=== PATIENT | male | born 1985 | race Caucasian/White ===

== ENCOUNTER 2017-01-24 02:38 | Emergency (ER) | payer MEDICAID ==
[2017-01-24 02:47] VITALS: BP 132/77
--- NOTE | 2017-01-24 03:04 | EDM.PDOC ---
ED HPI GENERAL MEDICAL PROBLEM - General Chief Complaint: Respiratory Problem Stated Complaint: COUGH CONGESTION Time Seen by Provider: 01/24/17 02:41 Source of Information: Reports: Patient, RN Notes Reviewed History Limitations: Reports: No Limitations - History of Present Illness INITIAL COMMENTS - FREE TEXT/NARRATIVE: The patient states that he has had a cough, occasionally productive of greenish sputum, for the past 4 days. He complains of some right side pain for the past 4 days, and a burning sensation to his right nostril with inhalation on off for the past 3 weeks. No recent fever. No prior similar symptoms. The patient states that he has been taking [id number] Sudafed, without relief. He states that he had surgical repair of a deviated septum about 6 weeks ago, in [place]. The patient does not have a PCP. Right Abdomen Pain Score (Numeric/FACES): 4 - Related Data Allergies Allergy/AdvReac Type Severity Reaction Status Date / Time No Known Allergies Allergy Verified 01/24/17 02:43 Home Meds: Home Meds . [No Known Home Meds] 01/24/17 [History] Past Medical History Endocrine/Metabolic History: Reports: Obesity/BMI 30+ - Past Surgical History HEENT Surgical History: Reports: Naso-Sinus Surgery (Repair of deviated septum) Social & Family History - Tobacco Use Smoking Status *Q: Never Smoker Second Hand Smoke Exposure: No - Caffeine Use Caffeine Use: Reports: Energy Drinks - Alcohol Use Alcohol Use History: No - Recreational Drug Use Recreational Drug Use: No - Living Situation & Occupation Living situation: Reports: , with Spouse, with Family (Son) Occupation: Employed ([employer]) ED ROS GENERAL - Review of Systems Review Of Systems: See Below Constitutional: Reports: No Symptoms HEENT: Reports: No Symptoms Respiratory: Reports: No Symptoms Cardiovascular: Reports: No Symptoms Endocrine: Reports: No Symptoms GI/Abdominal: Reports: No Symptoms : Reports: No Symptoms Musculoskeletal: Reports: No Symptoms Skin: Reports: No Symptoms Neurological: Reports: No Symptoms Psychiatric: Reports: No Symptoms Hematologic/Lymphatic: Reports: No Symptoms Immunologic: Reports: No Symptoms ED EXAM, GENERAL - Physical Exam Exam: See Below Exam Limited By: No Limitations General Appearance: Alert, WD/WN, No Apparent Distress Eye Exam: Bilateral Eye: Normal Inspection Ears: Normal External Exam, Normal Canal, Hearing Grossly Normal, Normal TMs Ear Exam: Bilateral Ear: Auricle Normal, Canal Normal, TM normal Nose: Normal Inspection, No Blood, Other (Bilateral nasal mucosal edema) Throat/Mouth: Normal Inspection, Normal Lips, Normal Teeth, Normal Gums, Normal Oropharynx, Normal Voice, No Airway Compromise Head: Atraumatic, Normocephalic Neck: Normal Inspection, Supple, Non-Tender, Full Range of Motion. No: Lymphadenopathy (L), Lymphadenopathy (R) Respiratory/Chest: No Respiratory Distress, Lungs Clear, Normal Breath Sounds, No Accessory Muscle Use Cardiovascular: Normal Peripheral Pulses, Regular Rate, Rhythm, No Gallop, No JVD, No Murmur, No Rub Peripheral Pulses: 4+: Radial (L), Radial (R) GI/Abdominal: Normal Bowel Sounds, Soft, Non-Tender, No Organomegaly, No Distention, No Abnormal Bruit, No Mass, Other (Obese) (Male) Exam: Deferred Rectal (Males) Exam: Deferred Back Exam: Normal Inspection, Full Range of Motion, NT Extremities: Normal Inspection, Normal Range of Motion, No Pedal Edema, Normal Capillary Refill Neurological: Alert, Oriented, Normal Cognition, No Motor/Sensory Deficits Psychiatric: Normal Affect Skin Exam: Warm, Dry, Intact, Normal Color, No Rash Lymphatic: No Adenopathy Course - Vital Signs Last Recorded V/S: Last Vital Signs Temp 36.4 C 01/24/17 02:43 Pulse 67 01/24/17 02:43 Resp 20 01/24/17 02:43 BP 132/77 01/24/17 02:43 Pulse Ox 96 01/24/17 02:55 - Orders/Labs/Meds Orders: Active Orders 24 hr Category Date Time Status Chest 2V [CR] Stat Exams 01/24/17 02:58 Taken Labs: Laboratory Tests 01/24/17 Range/Units 03:10 WBC 8.33 (4.23-9.07) K/mm3 RBC 5.76 (4.63-6.08) M/mm3 Hgb 15.8 (13.7-17.5) gm/L Hct 47.8 (40.1-51.0) % MCV 83.0 (79.0-92.2) fl MCH 27.4 (25.7-32.2) pg MCHC 33.1 (32.2-35.5) g/dl RDW Std Deviation 43.0 (35.1-43.9) fL Plt Count 215 (163-337) K/mm3 MPV 10.8 (9.4-12.3) fl Neutrophils % (Manual) 75 H (40-60) % Band Neutrophils % 0 (0-10) % Lymphocytes % (Manual) 17 L (20-40) % Atypical Lymphs % 0 % Monocytes % (Manual) 6 (2-10) % Eosinophils % (Manual) 2 (0.8-7.0) % Basophils % (Manual) 0 L (0.2-1.2) Platelet Estimate Adequate RBC Morph Comment Normal - Radiology Interpretation Free Text/Narrative:: Two-view chest radiograph appears to be grossly normal. Cardiac silhouette is within normal limits. No pulmonary vascular congestion. No pleural effusions. No focal infiltrate. No pneumothorax. Formal read per the Radiologist pending. - Re-Assessments/Exams Free Text/Narrative Re-Assessment/Exam: 01/24/17 03:48 Test results discussed with the patient. The patient most likely has a viral URI with cough. Unfortunate, there are no legitimate treatments for this - it will have to run its course. Departure - Departure Time of Disposition: 03:49 Disposition: Home, Self-Care 01 Condition: Good Clinical Impression: Viral URI with cough - Discharge Information Forms: ED Department Discharge Additional Instructions: You were seen in the emergency room for 4 days of cough, right-sided pain, and a burning sensation to your right nostril. Workup in the ER included a CBC and a chest x-ray. Your workup was normal. You do not have pneumonia. You MOST LIKELY have a viral URI with cough. Unfortunately, there are no treatments for a viral illness - it will have to run its course. We DO NOT recommend you take any [id number] cough or cold remedies - they do not work, but do have some unpleasant side effects. If any other problems, please do not hesitate to return to the ER. - My Orders Last 24 Hours: My Active Orders 01/24/17 02:58 Chest 2V [CR] Stat - Assessment/Plan Last 24 Hours: My Active Orders 01/24/17 02:58 Chest 2V [CR] Stat
--- NOTE | 2017-01-24 09:54 | CR ---
Chest: Two views of the chest were obtained. Comparison: No previous study. Heart size and mediastinum are normal. Lungs are clear. Minimal scoliosis is seen. Impression: 1. Minimal scoliosis. Nothing acute is identified on two-view chest x-ray. Diagnostic code #2
== END 2017-01-24 04:09 | disposition home or self-care (01) ==
LOC: JD.ED 02:38
DX: J02.9 Acute pharyngitis, unspecified (principal); E66.9 Obesity, unspecified; Z68.42 Body mass index [BMI] 45.0-49.9, adult
CPT/HCPCS: 36415; 71020; 71020-26; 85025; 99283; 99284